=== PATIENT | female | born 1965 | race Caucasian/White ===

== ENCOUNTER → 2021-08-10 | Outpatient (REF) | payer OTHER | LOC: M LABCFH 13:16 | PROVIDERS: ATTEND Physician Assistant | DX: Z12.4 Encounter for screening for malignant neoplasm of cervix (principal) ==

== ENCOUNTER → 2022-03-15 | Outpatient (CLI) | payer BC | LOC: M PLARAD 09:35 | PROVIDERS: ATTEND Internal Medicine Pulmonary Disease | DX: R91.8 Other nonspecific abnormal finding of lung field (principal); K57.30 Diverticulosis of large intestine without perforation or abscess without bleeding; D17.4 Benign lipomatous neoplasm of intrathoracic organs | CPT/HCPCS: 78815; A9552 ==

== ENCOUNTER → 2023-12-27 | Outpatient (REF) | LOC: M SLEEP HO 11:00 | PROVIDERS: ATTEND Internal Medicine Cardiovascular Disease | DX: R06.83 Snoring (principal); E66.9 Obesity, unspecified; Z72.820 Sleep deprivation ==